=== PATIENT | male | born 1950 | race Caucasian/White ===

== ENCOUNTER 2017-08-14 14:12 | Inpatient (IN) ==
[2017-08-14 15:37] LABS: Basophils % 0.4 % (0.0-0.8); Eosinophils # 0.1 10*3/uL (0.0-0.87); Hematocrit 44.4 VOL% (42.0-52.0); Hemoglobin 15.6 GM/DL (14.0-18.0); Immature Granulocytes % 0.5 %; Immature Granulocytes Absolute 0.04 #; Lymphocytes # 1.1 10*3/uL (1.4-4.0); Lymphocytes % 14.5 % (21.2-54.2); Mean Corpuscular HGB Conc 35.1 GM/DL (32-36); Mean Corpuscular Hemoglobin 30 PG (27-34); Mean Corpuscular Volume 86.2 FL (87-102); Monocytes # 0.7 10*3/uL (0.11-0.8); Monocytes % 9.3 % (1.7-12.7); Neutrophils # 5.8 10*3/uL (1.4-7.4); Neutrophils % 74.3 % (38.7-73.9); Platelet Count 222 T/CUMM (130-400); Red Blood Count 5.15 MC/CUMM (3.8-5.5); Red Cell Distribution Width 12.8 % (9.3-17.3); White Blood Count 7.9 T/CUMM (4-12)
[2017-08-14 16:03] LABS: Alanine Aminotransferase 43 U/L (16-61); Albumin 4.2 G/DL (3.4-5.0); Alkaline Phosphatase 76 U/L (45-117); Aspartate Amino Transferase 27 U/L (0-37); Blood Urea Nitrogen 17 MG/DL (7-18); Calcium 9.2 MG/DL (8.5-10.1); Glucose 94 MG/DL (74-106); Osmolality,Calculated 278.5 MOS/KG (273-304); Potassium 4.6 MMOL/L (3.5-5.1); Sodium 139 MMOL/L (136-145); Total Protein 7.3 G/DL (6.4-8.3); Troponin I Only < 0.015 NG/ML (0.00-0.045)
[2017-08-14 16:04] LABS: INR 1.1; PT Patient Result 11.1 SECS; Partial Thromboplastin Time 26.3 SECS (0-40)
[2017-08-14] MEDS ORDERED: ACETAMINOPHEN 325 MG TABLET PO PRN (18:39)
[2017-08-14] MEDS ORDERED: LABETALOL 20 MG/4 ML SYRINGE IV PRN (18:39)
[2017-08-14] MEDS ORDERED: ONDANSETRON 4 MG/2 ML VIAL IV PRN (18:39)
[2017-08-14] MEDS ORDERED: MORPHINE 2 MG/1 ML SYRINGE IV PRN (18:39)
[2017-08-14] MEDS ORDERED: SIMVASTATIN 40 MG TABLET PO SCH (22:30)
[2017-08-15] MEDS: SODIUM CHLORIDE 0.9% 1,000 ML IV SCH ×3 (00:49→11:39)
[2017-08-15 05:47] LABS: Basophils # 0.1 10*3/uL (0.0-0.2); Basophils % 0.8 % (0.0-0.8); Eosinophils # 0.1 10*3/uL (0.0-0.87); Eosinophils % 2.3 % (0.00-10.9); Hematocrit 40.2 VOL% (42.0-52.0); Hemoglobin 14.1 GM/DL (14.0-18.0); Immature Granulocytes % 0.6 %; Immature Granulocytes Absolute 0.04 #; Lymphocytes # 1.6 10*3/uL (1.4-4.0); Lymphocytes % 25.5 % (21.2-54.2); Mean Corpuscular HGB Conc 35.1 GM/DL (32-36); Mean Corpuscular Hemoglobin 30 PG (27-34); Mean Corpuscular Volume 85.2 FL (87-102); Mean Platelet Volume 10.1 FL (9.6-12.0); Monocytes # 0.6 10*3/uL (0.11-0.8); Monocytes % 9.6 % (1.7-12.7); Neutrophils # 3.8 10*3/uL (1.4-7.4); Neutrophils % 61.2 % (38.7-73.9); Platelet Count 210 T/CUMM (130-400); Red Blood Count 4.72 MC/CUMM (3.8-5.5); Red Cell Distribution Width 12.8 % (9.3-17.3); White Blood Count 6.2 T/CUMM (4-12)
[2017-08-15 06:25] LABS: Magnesium 2.4 MG/DL (1.8-2.4); Risk Ratio 3.86; VLDL CHOLESTEROL 145.2 MG/DL
[2017-08-15 10:19] LABS: Barbiturates Screen,Urine Negative (Negative); Benzodiazepines Screen,Urine Negative (Negative); Cannabinoid Screen,Urine Positive (Negative); Opiate Screen,Urine Negative (Negative); Phencyclidine Screen,Urine Negative (Negative)
[2017-08-15] MEDS ORDERED: chlordiazePOXIDE 10 MG CAPSULE PO PRN (11:33)
[2017-08-15] MEDS: ASPIRIN 325 MG TABLET PO SCH (13:01)
[2017-08-15] MEDS: PANTOPRAZOLE 40 MG TABLET PO SCH (13:01)
[2017-08-15] MEDS: CLOPIDOGREL 75 MG TABLET PO SCH (13:01)
[2017-08-15] MEDS ORDERED: SIMVASTATIN 40 MG TABLET PO SCH (15:22)
[2017-08-15] MEDS: ZALEPLON 5 MG CAPSULE PO PRN ×2 (21:52→21:57)
[2017-08-16 05:58] LABS: Basophils % 0.3 % (0.0-0.8); Eosinophils # 0.1 10*3/uL (0.0-0.87); Eosinophils % 2.3 % (0.00-10.9); Hematocrit 39.3 VOL% (42.0-52.0); Hemoglobin 14.4 GM/DL (14.0-18.0); Immature Granulocytes % 0.7 %; Immature Granulocytes Absolute 0.04 #; Lymphocytes # 1.4 10*3/uL (1.4-4.0); Lymphocytes % 23.3 % (21.2-54.2); Mean Corpuscular HGB Conc 36.6 GM/DL (32-36); Mean Corpuscular Hemoglobin 31 PG (27-34); Mean Platelet Volume 10.2 FL (9.6-12.0); Monocytes # 0.6 10*3/uL (0.11-0.8); Monocytes % 10.1 % (1.7-12.7); Neutrophils # 3.9 10*3/uL (1.4-7.4); Neutrophils % 63.3 % (38.7-73.9); Platelet Count 185 T/CUMM (130-400); Red Blood Count 4.68 MC/CUMM (3.8-5.5); Red Cell Distribution Width 12.9 % (9.3-17.3); White Blood Count 6.1 T/CUMM (4-12)
[2017-08-16] MEDS ORDERED: VENLAFAXINE XR 75 MG CAPSULE PO SCH (09:00)
[2017-08-16] MEDS ORDERED: MULTIVITAMIN (CENTRUM) TABLET PO SCH (09:00)
[2017-08-16] MEDS: ASPIRIN 325 MG TABLET PO SCH (09:10)
[2017-08-16] MEDS: CLOPIDOGREL 75 MG TABLET PO SCH (09:10)
[2017-08-16] MEDS: PANTOPRAZOLE 40 MG TABLET PO SCH (09:10)
[2017-08-16 13:29] VITALS: BP 189/98
== END 2017-08-16 13:27 | disposition home or self-care (01) | DRG 65 ==
LOC: N.ED 14:12 → N.EDINP 17:33 → SUATTDRO 17:33 → N.4E 19:27
PROVIDERS: ADMIT Internal Medicine; ATTEND Internal Medicine Infectious Disease